=== PATIENT | female | born 1995 | race Caucasian/White ===

== ENCOUNTER 2018-12-15 21:08 | Inpatient (IN) | payer MEDICAID ==
[2018-12-15] MEDS: LACTATED RINGER'S 1,000 ML IV (23:45)
[2018-12-16] MEDS ORDERED: LIDOCAINE 1% (MPF) 30 ML INJ INJ
[2018-12-16 00:04] LABS: ADD MAN DIFF? NO
[2018-12-16 00:08] LABS: WHITE BLOOD COUNT 9.8 10^3/ul (4.8-10.8)
[2018-12-16 00:08] LABS: BASOPHILS % 0.2 % (0.0-2.0); EOSINOPHILS # 0.1 10^3/ul (0.0-0.5); EOSINOPHILS % 0.8 % (0.0-7.0); HEMATOCRIT 32.6 % (37.0-47.0); LYMPHOCYTES # 2.8 10^3/ul (0.8-2.9); LYMPHOCYTES % 28.9 % (15.0-51.0); MEAN CORPUSCULAR HEMOGLOBIN 29.2 pg (29.0-33.0); MEAN CORPUSCULAR HGB CONC 33.7 g/dl (32.0-37.0); MEAN CORPUSCULAR VOLUME 86.5 fl (82.0-101.0); MEAN PLATELET VOLUME 9.4 fl (7.4-10.4); MONOCYTE # 0.7 10^3/ul (0.3-0.9); MONOCYTES % 7.6 % (0.0-11.0); NEUTROPHILS % 61.5 % (39.0-77.0); PLATELET COUNT 230 10^3/UL (140-415); RED BLOOD COUNT 3.77 10^6/ul (4.20-5.40); RED CELL DISTRIBUTION WIDTH 13.7 % (11.5-14.5)
[2018-12-16 00:27] LABS: INR 0.81; PROTIME 11.3 Sec (11.9-14.9); PT RATIO 0.9
[2018-12-16 00:28] LABS: PARTIAL THROMBOPLASTIN TIME 24.7 Sec (23.0-35.0)
[2018-12-16 01:03] LABS: HEPATITIS B SURFACE ANTIGEN NEGATIVE (NEGATIVE)
[2018-12-16] MEDS: LACTATED RINGER'S 1,000 ML IV ×2 (01:15→09:26)
[2018-12-16] MEDS: AMPICILLIN 2 GM/NS (PMX) 100 ML IV (01:30)
[2018-12-16] MEDS ORDERED: OXYTOCIN 30 UNITS/LR 500 ML IV ×3 (01:30)
[2018-12-16] MEDS ORDERED: CEFAZOLIN 2 GM/50 ML (PMX) 50 ML IVPB (01:30)
[2018-12-16] MEDS ORDERED: MISOPROSTOL 200 MCG TAB PR ×3 (01:30→19:00)
[2018-12-16] MEDS ORDERED: METHYLERGONOVINE 0.2 MG INJ IM ×3 (01:30→19:00)
[2018-12-16] MEDS ORDERED: CARBOPROST 250 MCG INJ IM ×3 (01:30→19:00)
[2018-12-16] MEDS: AMPICILLIN 1 GM/NS (PMX) 50 ML IV ×3 (05:14→13:07)
[2018-12-16] MEDS: BUTORPHANOL 2 MG INJ IV (12:14)
[2018-12-16] MEDS: OXYTOCIN 30 UNITS/LR 500 ML IV ×3 (12:49→19:21)
[2018-12-16 17:24] LABS: RAPID PLASMA REAGIN NONREACTIVE (NR)
[2018-12-16] MEDS: DEXTROSE 5%-LR 1,000 ML IV (18:32)
[2018-12-16] MEDS: LACTATED RINGER'S 1,000 ML IV* (18:32)
[2018-12-16] MEDS ORDERED: ACETAMINOPHEN 325 MG TAB PO (19:00)
[2018-12-16] MEDS ORDERED: DIPHENHYDRAMINE 50 MG INJ IV (19:00)
[2018-12-16] MEDS ORDERED: DIBUCAINE 1% 30 GM OINT TOP (19:00)
[2018-12-16] MEDS ORDERED: OXYCODONE/ASPIRIN (4.88/325) TAB PO (19:00)
[2018-12-16] MEDS ORDERED: ONDANSETRON 4 MG INJ IV (19:00)
[2018-12-16] MEDS ORDERED: ZOLPIDEM 5 MG TAB PO (19:00)
[2018-12-16] MEDS: WITCH HAZEL/GLYCERIN PAD PR (19:19)
[2018-12-16] MEDS: BENZOCAINE 20% 56 ML SPRAY TOP (19:19)
[2018-12-17] MEDS: IBUPROFEN 600 MG TAB PO ×5 (00:12→23:34)
[2018-12-17] MEDS: LACTATED RINGER'S 1,000 ML IV* (02:05)
[2018-12-17 08:02] LABS: ADD MAN DIFF? NO
[2018-12-17 08:07] LABS: WHITE BLOOD COUNT 10.5 10^3/ul (4.8-10.8)
[2018-12-17 08:07] LABS: BASOPHILS % 0.3 % (0.0-2.0); EOSINOPHILS # 0.1 10^3/ul (0.0-0.5); EOSINOPHILS % 0.5 % (0.0-7.0); HEMATOCRIT 29.7 % (37.0-47.0); LYMPHOCYTES % 18.9 % (15.0-51.0); MEAN CORPUSCULAR HEMOGLOBIN 29.3 pg (29.0-33.0); MEAN CORPUSCULAR HGB CONC 33.7 g/dl (32.0-37.0); MEAN CORPUSCULAR VOLUME 87.1 fl (82.0-101.0); MEAN PLATELET VOLUME 9.2 fl (7.4-10.4); MONOCYTE # 0.6 10^3/ul (0.3-0.9); MONOCYTES % 6.1 % (0.0-11.0); NEUTROPHIL # 7.7 10^3/ul (1.6-7.5); NEUTROPHILS % 73.4 % (39.0-77.0); PLATELET COUNT 170 10^3/UL (140-415); RED BLOOD COUNT 3.41 10^6/ul (4.20-5.40); RED CELL DISTRIBUTION WIDTH 13.5 % (11.5-14.5)
[2018-12-17] MEDS: LANOLIN HPA 1 PKT TOP (09:19)
[2018-12-17] MEDS: SENNA/DOCUSATE NA (8.6MG/50MG) TAB PO (23:34)
[2018-12-17] MEDS: MAGNESIUM HYDROXIDE 30ML CUP PO (23:34)
[2018-12-18] MEDS: IBUPROFEN 600 MG TAB PO ×3 (06:00→17:27)
[2018-12-18] MEDS: DIPHTH/TET/ACEL PERTUSS (ADULT) 0.5 ML VIAL IM* (09:53)
[2018-12-18] MEDS: MEASLES,MUMPS,RUBELLA VACCINE INJ SC* (09:53)
[2018-12-18] MEDS: SENNA/DOCUSATE NA (8.6MG/50MG) TAB PO (10:57)
[2018-12-18] MEDS: MAGNESIUM HYDROXIDE 30ML CUP PO (10:57)
== END 2018-12-18 19:10 | disposition home or self-care (01) | DRG 807 ==
LOC: OBT 21:08 → L-D 21:10 → PP1 12-16 17:48
PROVIDERS: Obstetrics & Gynecology
PROC: 10E0XZZ Delivery of Products of Conception, External Approach (ICD-10-PCS; principal; 2018-12-16)
PROC: 0HQ9XZZ Repair Perineum Skin, External Approach (ICD-10-PCS; 2018-12-16)
PROC: 10907ZC Drainage of Amniotic Fluid, Therapeutic from Products of Conception, Via Natural or Artificial Opening (ICD-10-PCS; 2018-12-16)
PROC: 4A1HXCZ Monitoring of Products of Conception, Cardiac Rate, External Approach (ICD-10-PCS; 2018-12-16)
DX: O76 Abnormality in fetal heart rate and rhythm complicating labor and delivery (principal); Z37.0 Single live birth; O48.0 Post-term pregnancy; Z3A.40 40 weeks gestation of pregnancy; O70.0 First degree perineal laceration during delivery
CPT/HCPCS: 62322; 76815; 76818; 85025; 85610; 85730; 86592; 86850; 86900; 86901; 87340